=== PATIENT | male | born 1990 | race Caucasian/White ===

== ENCOUNTER 2017-12-24 13:11 | Emergency (ER) | payer SELFPAY ==
[~2017-12-24] VITALS: Ht 180.3 cm; Wt 59.1 kg
[2017-12-24 13:28] VITALS: BP 110/71
[2017-12-24] MEDS ORDERED: ZIPR20CA2 PO (13:37)
[2017-12-24] MEDS ORDERED: ZIPR40CA2 PO (13:37)
[2017-12-24] MEDS ORDERED: SERT100T12 PO (13:38)
== END 2017-12-24 14:20 | disposition left against medical advice (07) ==
LOC: EMS 13:14
DX: Z53.21 Procedure and treatment not carried out due to patient leaving prior to being seen by health care provider (principal)